=== PATIENT | male | born 1965 | race Two or more races ===

== ENCOUNTER 2023-11-05 11:29 | Emergency (ER) | payer OTHER ==
[~2023-11-05] VITALS: Ht 177.8 cm; Wt 88.6 kg
[2023-11-05] MEDS: cloNIDine HCL 0.1 MG TAB PO ONE (11:50)
[2023-11-05 13:00] VITALS: BP 122/85; PULSE 90; RESP 15; TEMP 97; O2SAT 96
[2023-11-05] MEDS ORDERED: METH4PAK PO (13:00)
== END 2023-11-05 13:17 | disposition home or self-care (01) ==
LOC: ER 11:29
DX: G51.0 Bell's palsy (principal); I10 Essential (primary) hypertension; Z79.899 Other long term (current) drug therapy
CPT/HCPCS: 70450; 82962; 93005